=== PATIENT | female | born 1950 | race American Indian/Alaskan Native ===

== ENCOUNTER 2018-04-11 10:13 | Day surgery (SDC) | payer MEDICARE ==
[2018-04-09 08:05] VITALS: BMI 56.0
--- NOTE | 2018-04-11 11:28 | CP.SDSHP ---
Same Day Surgery H & P - History Proposed Procedure: US guided FNA of left thyroid nodule Pre-Op Diagnosis: left thyroid nodule - Allergies Allergies: Allergies ceftriaxone [From Rocephin] Allergy (Intermediate, Verified 04/09/18 08:21) " QUEASINESS" - Impression Impression: Pt with multiple left thyroid nodule. Plan US guided FNA of medial midpole nodule. Pt. Evaluated Today:Candidate for Anesthesia & Procedure: No Short Stay Discharge - Short Stay Discharge Admitting Diagnosis/Reason for Visit: DX: THYROID NODULE Disposition: HOME/ ROUTINE
--- NOTE | 2018-04-11 11:30 | PCM.SURG1 ---
Surgeon's Initial Post Op Note - Surgeon's Notes Surgeon: Misael Johnson MD Lead Manufacturing Engineer: NONE Type of Anesthesia: Local Pre-Operative Diagnosis: left thyroid nodule Operative Findings: Multiple hetertogneous nodules left thyroid Post-Operative Diagnosis: left thyroid nodule Operation Performed: US guided FNA of left thyroid nodule in the medial midpole . Specimen/Specimens Removed: 25 g FNA x 5 Estimated Blood Loss: EBL {In ML}: 0 Blood Products Given: N/A Drains Used: No Drains Post-Op Condition: Good Date of Surgery/Procedure: 04/11/18 Time of Surgery/Procedure: 11:25
--- NOTE | 2018-04-12 13:59 | US ---
PROCEDURE: Date of Procedure: 04/11/2018 PROCEDURE: 1. Ultrasound guided FNA of left thyroid nodule, CPT 75888 2. Ultrasound guidance for FNA, 14910 Medications: 2cc 1% Lidocaine HISTORY: Enlarged left thyroid nodule. TECHNIQUE: Following informed consent and procedure time-out, a limited ultrasound patient's neck confirmed the presence of multiple enlarged thyroid nodules. A large 3 centimeter medial midpole nodule was selected for FNA. The nodule is complex and is predominantly solid. After the patient's neck was prepped and draped in the usual sterile fashion, the skin was anesthetized with 1% lidocaine. Ultrasound-guided fine needle aspiration was then performed of the dominant left thyroid nodule. A total of 4 passes were made into the nodule with 25 gauge needle under ultrasound guidance. The FNA specimen was sent for routine pathology and genetics. Post biopsy ultrasound showed no hematoma. IMPRESSION: Ultrasound-guided FNA of the dominant left thyroid nodule.
== END 2018-04-11 11:30 | disposition home or self-care (01) ==
LOC: C.SPRAD 10:13
PROVIDERS: ATTEND Radiology Vascular & Interventional Radiology
DX: E04.1 Nontoxic single thyroid nodule (principal)